=== PATIENT | female | born 1950 | race Caucasian/White ===

== ENCOUNTER 2022-02-11 18:22 | Emergency (ER) | payer MEDICARE, OTHER ==
[~2022-02-11] VITALS: Ht 152.4 cm; Wt 86.2 kg
[2022-02-11] MEDS ORDERED: BETAMETHASONE D15 G2 TOP (20:30)
== END 2022-02-11 20:51 | disposition home or self-care (01) ==
LOC: ED 18:22
DX: Z76.0 Encounter for issue of repeat prescription (principal); R21 Rash and other nonspecific skin eruption; J44.9 Chronic obstructive pulmonary disease, unspecified
CPT/HCPCS: 99281

== ENCOUNTER 2022-10-18 05:40 | Emergency (ER) | payer MEDICARE, OTHER ==
[~2022-10-18] VITALS: Ht 152.4 cm; Wt 90.7 kg
[~2022-10-18 05:40] MED LIST: BETAMETHASONE D15 G2 TOP
--- OUTSIDE RECORDS SUMMARY | 2022-10-18 05:44 | XMS ---
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 Harish. [facility] MO[facility] [address] [place] [address] TOTAL 11 NOTE: Visits indicate total known visits. ED/UCC VISIT TRACKING (12 MO.) 10/18/2022 05:41 [facility] [place] TYPE: Emergency COMPLAINT: - COPD 10/08/2022 01:47 Xavier [facility] [place] TYPE: Emergency COMPLAINT: - R21 DIAGNOSES: - Rash and other nonspecific skin eruption 09/28/2022 13:25 Xavier [facility] [place] TYPE: Emergency COMPLAINT: - J44.1 DIAGNOSES: - Acute bronchospasm - Hyperglycemia, unspecified - Chronic obstructive pulmonary disease with (acute) exacerbation 09/06/2022 04:18 Xavier [facility] [place] TYPE: Emergency COMPLAINT: - W19.XXXA DIAGNOSES: - Unspecified fall, initial encounter - Contusion of right hip, initial encounter - Contusion of right knee, initial encounter - Sprain of unspecified ligament of right ankle, initial encounter - Unspecified sprain of right wrist, initial encounter - MED 1 FALL - Contusion of right shoulder, initial encounter 08/25/2022 18:53 Xavier [facility] TYPE: Emergency COMPLAINT: - J40 DIAGNOSES: - Chronic obstructive pulmonary disease, unspecified - Dysuria - Bronchitis, not specified as acute or chronic 07/23/2022 12:52 Xavier [facility] [place] TYPE: Emergency COMPLAINT: - J44.1 DIAGNOSES: - Dysuria - Chronic obstructive pulmonary disease with (acute) exacerbation 07/08/2022 19:06 Xavier [facility] TYPE: Emergency COMPLAINT: - N10 DIAGNOSES: - Acute pyelonephritis - M31 BODY ACHES 03/25/2022 11:40 Xavier [facility] TYPE: Emergency DIAGNOSES: - Weakness - Cerebral infarction, unspecified 02/11/2022 18:23 [facility] [place] TYPE: Emergency COMPLAINT: - MEDICATION REFILL DIAGNOSES: - Encounter for issue of repeat prescription - Chronic obstructive pulmonary disease, unspecified - Rash and other nonspecific skin eruption 11/27/2021 18:56 Xavier [facility] TYPE: Emergency DIAGNOSES: - Pneumonia, unspecified organism 11/16/2021 14:53 Xavier [facility] TYPE: Emergency DIAGNOSES: - Respiratory failure, unspecified with hypoxia - Influenza due to other identified influenza virus with other respiratory manifestations - Chronic obstructive pulmonary disease with (acute) exacerbation INPATIENT VISIT TRACKING (12 MO.) 11/27/2021 18:56 Xavier [facility] TYPE: Medical Surgical DIAGNOSES: - Pneumonia, unspecified organism - Type 2 diabetes mellitus with hyperglycemia - snf (current) use of insulin 11/16/2021 14:53 Xavier [facility] TYPE: Medical Surgical DIAGNOSES: - Respiratory failure, unspecified with hypoxia - Chronic obstructive pulmonary disease with (acute) exacerbation - Influenza due to other identified influenza virus with other respiratory manifestations [email or web address]
[2022-10-18] MEDS ORDERED: METFORMIN HCL1000 MG PO (05:48)
[2022-10-18] MEDS ORDERED: VENTOLIN HFA18 GM INH ×2 (05:48→06:54)
[2022-10-18] MEDS ORDERED: BENZONATATE100 MG PO (06:51)
[2022-10-18] MEDS ORDERED: PREDNISONE20 MG PO (06:51)
[2022-10-18] MEDS ORDERED: ZITHROMAX250 MG PO (06:51)
[2022-10-19] MEDS ORDERED: ONDANSETRON ODT8 MG PO (14:25)
== END 2022-10-18 07:09 | disposition home or self-care (01) ==
LOC: ED 05:40
DX: J44.1 Chronic obstructive pulmonary disease with (acute) exacerbation (principal); E11.9 Type 2 diabetes mellitus without complications; Z88.5 Allergy status to narcotic agent; Z79.899 Other long term (current) drug therapy; Z79.84 Long term (current) use of oral hypoglycemic drugs; Z20.822 Contact with and (suspected) exposure to COVID-19
CPT/HCPCS: 36415; 71045; 80053; 83880; 85025; 87502; 94640; 96374; 99285-25; C9803; J2930; U0003

== ENCOUNTER 2022-10-19 11:56 | Emergency (ER) | payer MEDICARE, OTHER ==
[~2022-10-19] VITALS: Ht 152.4 cm; Wt 90.9 kg
[~2022-10-19 11:56] MED LIST changes: +BENZONATATE100 MG PO; +METFORMIN HCL1000 MG PO; +PREDNISONE20 MG PO; +VENTOLIN HFA18 GM INH; +ZITHROMAX250 MG PO
--- OUTSIDE RECORDS SUMMARY | 2022-10-19 11:58 | XMS ---
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 Mihaela [facility]12 MO.) [facility] [address] [place] [address] TOTAL 12 NOTE: Visits indicate total known visits. ED/UCC VISIT TRACKING (12 MO.) 10/19/2022 11:57 [facility] TYPE: Emergency COMPLAINT: - SOB, CHOKING, VOMITING 10/18/2022 05:41 [facility]ATES[facility] TYPE: Emergency COMPLAINT: - COPD 10/08/2022 01:47 Xavier [facility] TYPE: Emergency COMPLAINT: - R21 DIAGNOSES: - Rash and other nonspecific skin eruption 09/28/2022 13:25 Tyler [facility] TYPE: Emergency COMPLAINT: - J44.1 DIAGNOSES: [...] of right shoulder, initial encounter 08/25/2022 18:53 Tyler Charlie [facility] TYPE: Emergency COMPLAINT: - J40 [...] Type 2 diabetes mellitus with hyperglycemia - long term care social worker (current) use of insulin 11/16/2021 14:53 Xavier [facility] TYPE: Medical Surgical DIAGNOSES: - Respiratory failure, unspecified with hypoxia - Chronic obstructive pulmonary disease with (acute) exacerbation - Influenza due to other identified influenza virus with other respiratory manifestations [email or web address]
[2022-10-19] MEDS ORDERED: ONDANSETRON ODT8 MG PO (14:25)
== END 2022-10-19 15:02 | disposition home or self-care (01) ==
LOC: ED 11:56
DX: J44.1 Chronic obstructive pulmonary disease with (acute) exacerbation (principal); E11.65 Type 2 diabetes mellitus with hyperglycemia; E86.0 Dehydration; K74.60 Unspecified cirrhosis of liver; Z88.5 Allergy status to narcotic agent; Z79.899 Other long term (current) drug therapy; Z79.84 Long term (current) use of oral hypoglycemic drugs; Z20.822 Contact with and (suspected) exposure to COVID-19
CPT/HCPCS: 36415; 71045; 74177; 80053; 81003; 83690; 84484; 85025; 87502; 94640; 96375; 99285-25; J2270; J2405; J7030; Q9967; U0003